=== PATIENT | female | born 1970 | race Asian ===

== ENCOUNTER 2017-02-10 10:53 | Emergency (ER) | payer BC ==
[~2017-02-10] VITALS: Ht 157.5 cm; Wt 60.0 kg
[2017-02-10 10:54] VITALS: BP 108/63; PULSE 86; RESP 16; TEMP 98.7; O2SAT 100
[2017-02-10] MEDS ORDERED: SODIUM CHLOR 0.9% 1000 ML INJ 1,000 ML IV SCH (11:49)
--- NOTE | 2017-02-10 11:53 | PD ---
HPI Chief Complaint: Related Problem Time Seen by Provider: 11:52 Travel History International Travel<30 days: No Contact w/Intl Traveler<30days: No Traveled to known affect area: No History of Present Illness HPI 46-year-old female 13 weeks presents to the emergency department for evaluation of epigastric bloating, nausea, gastric reflux and vomiting for one month. The patient speaks only Mandarin and cashier host/hostess is used for the duration of the visit. The patient states that she is . States her last menstrual period is 11/09/16. She has had confirmation of by an OB/ DIRECTOR OF PHYSICIAN PRACTICES with ultrasound, she has twin gestation secondary to in vitro fertilization. She is here complaining of reflux, nausea and vomiting for the past month. States that she does not have anything for nausea at home and is unable to get an appointment with her HORTICULTURAL AGENT for another several weeks. She denies any abdominal pain, fever, chills, chest pain, shortness of breath, vaginal bleeding, vaginal discharge, dysuria. Denies taking any medications. Symptoms aggravated with eating. Denies any alleviating factors. No other complaints. PFSH Past Medical History Medical History: Denies Significant Hx ?: LMP: 10/30/16 : 1 Para: 2 Past Surgical History Surgical History: No Previous Surgery Social History Alcohol Use: No Tobacco Use: No Substance Use: No Allergies-Medications (Allergen,Severity, Reaction): Coded Allergies: No Known Allergies (Unverified , 02/10/17) Review of Systems Except as stated in HPI: all other systems reviewed are Neg Physical Exam Narrative GENERAL: Well-nourished and well-developed pleasant female patient in no acute distress who is nontoxic appearing. SKIN: Warm and dry. HEAD: Normocephalic and atraumatic. EYES: No injection, drainage, or hyphema noted. PERRLA. EOMI. ENT: No nasal drainage noted. Oropharynx is clear. NECK: Supple and the trachea is midline. CARDIOVASCULAR: Regular rate and rhythm. RESPIRATORY: Breath sounds are equal bilaterally with no accessory muscle use, wheezing, rhonchi, or crackles. GASTROINTESTINAL: Abdomen is soft, non-tender, and nondistended. No rebound tenderness or guarding. MUSCULOSKELETAL: No obvious deformities, swelling, cyanosis, or ecchymosis is present throughout the upper and lower extremities. Patient has full range of motion without any signs of neurovascular compromise. NEUROLOGICAL: Awake, alert, and oriented. Normal speech and gait. Cranial nerves are grossly intact. Data Data Last Documented VS Vital Signs Date Time Temp Pulse Resp B/P Pulse Ox O2 Delivery O2 Flow Rate FiO2 02/10/17 13:44 79 16 100/52 99 02/10/17 10:54 98.7 Room Air Orders Beta Hcg (Quant/Titer) (02/10/17 11:49) Complete Blood Count With Diff (02/10/17 11:49) Comprehensive Metabolic Panel (02/10/17 11:49) Urinalysis - C+S If Indicated (02/10/17 11:49) Iv Access Insert/Monitor (02/10/17 11:49) Ecg Monitoring (02/10/17 11:49) Ondansetron Inj (Zofran Inj) (02/10/17 12:00) Ed Urine Pregnancytest Poc (02/10/17 11:49) Sodium Chlor 0.9% 1000 Ml Inj (Ns 1000 M (02/10/17 11:49) Famotidine Inj (Pepcid Inj) (02/10/17 12:00) Lipase (02/10/17 12:05) Labs Laboratory Tests Test 02/10/17 12:05 White Blood Count 8.5 TH/MM3 Red Blood Count 3.92 MIL/MM3 Hemoglobin 12.5 GM/DL Hematocrit 35.7 % Mean Corpuscular Volume 91.2 FL Mean Corpuscular Hemoglobin 31.8 PG Mean Corpuscular Hemoglobin 34.9 % Concent Red Cell Distribution Width 13.4 % Platelet Count 203 TH/MM3 Mean Platelet Volume 9.3 FL Neutrophils (%) (Auto) 65.1 % Lymphocytes (%) (Auto) 22.8 % Monocytes (%) (Auto) 9.3 % Eosinophils (%) (Auto) 2.5 % Basophils (%) (Auto) 0.3 % Neutrophils # (Auto) 5.5 TH/MM3 Lymphocytes # (Auto) 1.9 TH/MM3 Monocytes # (Auto) 0.8 TH/MM3 Eosinophils # (Auto) 0.2 TH/MM3 Basophils # (Auto) 0.0 TH/MM3 CBC Comment DIFF FINAL Differential Comment Urine Color YELLOW Urine Turbidity CLOUDY Urine pH 8.5 Urine Specific [place] 1.022 Urine Protein TRACE mg/dL Urine Glucose (UA) NEG mg/dL Urine Ketones 10 mg/dL Urine Occult Blood NEG Urine Nitrite NEG Urine Bilirubin NEG Urine Urobilinogen LESS THAN 2.0 MG/DL Urine Leukocyte Esterase NEG Urine RBC 3 /hpf Urine Squamous Epithelial 3 /hpf Cells Urine Amorphous Sediment OCC Urine Bacteria RARE /hpf Urine Mucus FEW /lpf Microscopic Urinalysis Comment CULT NOT INDICATED Sodium Level 138 MEQ/L Potassium Level 3.8 MEQ/L Chloride Level 107 MEQ/L Carbon Dioxide Level 20.4 MEQ/L Anion Gap 11 MEQ/L Blood Urea Nitrogen 7 MG/DL Creatinine 0.41 MG/DL Estimat Glomerular Filtration 169 ML/MIN Rate Random Glucose 69 MG/DL Calcium Level 9.2 MG/DL Total Bilirubin 0.5 MG/DL Aspartate Amino Transf 20 U/L (AST/SGOT) Alanine Aminotransferase 20 U/L (ALT/SGPT) Alkaline Phosphatase 59 U/L Total Protein 7.6 GM/DL Albumin 3.5 GM/DL Lipase 159 U/L Human Chorionic Gonadotropin, GREATER THAN Quant [id number] MIU/ML MDM Medical Decision Making Medical Screen Exam Complete: Yes Emergency Medical Condition: Yes Differential Diagnosis Reflux versus versus UTI versus dehydration versus electrolyte abnormality Narrative Course 46-year-old female presents to the emergency department for evaluation of reflux , nausea and vomiting in the setting of first trimester . Patient is afebrile, vital signs are stable. Abdominal examination is benign. IV access is obtained, labs 7 drawn and sent. Patient is administered IV fluids, Zofran and Pepcid. CBC is unremarkable. CMP is unremarkable. Beta hCG greater than 200,000. Urinalysis shows 10 ketones, rare bacteria and few mucus. Patient reports improvement of symptoms after antiemetics and fluids. Patient will be discharged with Zofran and Zantac. Instructed to follow up as an outpatient with her finance specialist. Patient verbalizes understanding and agreement with treatment plan. I discussed the case with my attending physician Dr. Trevino who is aware of the patients history, physical examination findings, and treatment plan. Diagnosis Primary Impression: Vomiting during Additional Impression: Gastric reflux Referrals: Primary Care Physician Patient Instructions: Acute Nausea and Vomiting (ED), Gastroesophageal Reflux Disease (ED), General Instructions, (DC) Additional Instructions: Take medications as prescribed. Follow-up with your OBGYN Return to the ED for any acute worsening of symptoms. Med/Other Pt SpecificInfo: Prescription(s) given Scripts Ondansetron (Zofran)4 Mg Tab4 Mg PO Q6HR PRN (NAUSEA OR VOMITING) #20 TAB Ref 0 Prov:Raghu Trevino MD 02/10/17 Ranitidine (Zantac)150 Mg [id number] Mg PO BID #60 TAB Ref 0 Prov:Raghu Trevino MD 02/10/17 Disposition: 01 DISCHARGE HOME Condition: Stable Nenita Brumfield Feb 10, 2017 11:52
[2017-02-10] MEDS ORDERED: ONDANSETRON HCL 4 MG/2 ML VIAL IVP ONE (12:00)
[2017-02-10] MEDS ORDERED: FAMOTIDINE 20 MG/2 ML VIAL IV PUSH ONE (12:00)
[2017-02-10 12:42] LABS: AUTOMATED NEUTROPHIL # 5.5 TH/MM3 (1.8-7.7); BASOPHIL % 0.3 % (0.0-2.0); EOSINOPHIL # 0.2 TH/MM3 (0-0.4); EOSINOPHIL % 2.5 % (0.0-4.0); HEMATOCRIT 35.7 % (35.0-46.0); HEMO FLAGS DIFF FINAL; LYMPH % 22.8 % (9.0-44.0); LYMPHOCYTE # 1.9 TH/MM3 (1.0-4.8); MEAN CELL VOLUME 91.2 FL (80.0-100.0); MEAN CORPUSCULAR HEMOGLOBIN 31.8 PG (27.0-34.0); MEAN CORPUSCULAR HGB CONC 34.9 % (32.0-36.0); MONO % 9.3 % (0.0-8.0); NEUT % 65.1 % (16.0-70.0); PLATELET COUNT 203 TH/MM3 (150-450); RED BLOOD COUNT 3.92 MIL/MM3 (4.00-5.30); RED CELL DISTRIBUTION WIDTH 13.4 % (11.6-17.2); WHITE BLOOD COUNT 8.5 TH/MM3 (4.0-11.0)
[2017-02-10 12:52] LABS: BACTERIA, URINE RARE /hpf; BLOOD, URINE NEG (NEG); COMMENT (UR) CULT NOT INDICATED; CULTURE IF INDICATED CULT NOT INDICATED; GLUCOSE,URINE NEG (NEG); KETONE, URINE 10 mg/dL (NEG); MUCUS URINE FEW /lpf (OCC); NITRITE,URINE NEG (NEG); PH, URINE 8.5 (5.0-8.5); SQUAMOUS EPITHELIAL CELL URINE 3 /hpf (0-5); URINE COLOR YELLOW (YELLW/STRAW)
[2017-02-10 13:10] LABS: ALT (GPT) 20 U/L (10-53); ANION GAP 11 MEQ/L (5-15); AST (GOT) 20 U/L (15-37); BICARBONATE 20.4 MEQ/L (21.0-32.0); BLOOD UREA NITROGEN 7 MG/DL (7-18); CHLORIDE 107 MEQ/L (98-107); GLOMERULAR FILTRATION RATE 169 ML/MIN (>89); POTASSIUM 3.8 MEQ/L (3.5-5.1); SODIUM (NA) 138 MEQ/L (136-145)
[2017-02-10 13:26] LABS: ALKALINE PHOSPHATASE 59 U/L (45-117); TOTAL BILIRUBIN ADULT 0.5 MG/DL (0.2-1.0)
[2017-02-10 13:44] VITALS: BP 100/52; PULSE 79; RESP 16; O2SAT 99
[2017-02-10 14:02] LABS: BETA HCG QUANT GREATER THAN 200000 MIU/ML (0-5)
[2017-02-10] MEDS ORDERED: ZANT150T2 PO (14:18)
[2017-02-10] MEDS ORDERED: ZOFR4TAB PO (14:18)
== END 2017-02-10 14:50 | disposition home or self-care (01) ==
LOC: NEPD 10:53
DX: O21.9 Vomiting of pregnancy, unspecified (principal); K21.9 Gastro-esophageal reflux disease without esophagitis; O09.511 Supervision of elderly primigravida, first trimester; O30.001 Twin pregnancy, unspecified number of placenta and unspecified number of amniotic sacs, first trimester; Z3A.13 13 weeks gestation of pregnancy
CPT/HCPCS: 80053; 81001; 83690; 84702; 84703; 85025; 96361; 96374; 96375; 99284; J2405; J7030

== ENCOUNTER 2017-02-20 15:23 | Emergency (ER) | payer BC ==
[~2017-02-20] VITALS: Ht 160 cm; Wt 50.0 kg
[~2017-02-20 15:23] MED LIST: ZANT150T2 PO; ZOFR4TAB PO
[2017-02-20 15:25] VITALS: BP 105/54; PULSE 91; RESP 15; TEMP 98.2; O2SAT 99
--- NOTE | 2017-02-20 15:44 | PD ---
HPI Chief Complaint: GI Complaint Time Seen by Provider: 15:44 Travel History International Travel<30 days: No Contact w/Intl Traveler<30days: No Traveled to known affect area: No History of Present Illness HPI 46-year-old female who is 13 weeks with twins came to the emergency room with history of constipation. Patient was seen in the emergency room 10 days ago for hyperemesis gravidarum. This is a from IVF which was done in [facility]. Patient has not seen an OB here in return of each. Her appointment with the OB is on March 07. Patient does not speak Turkmen. History was obtained through interpretation by another person. [facility] Past Medical History Narrative Medical List of her past medical, surgical, social and family history was reviewed from the nursing note. ?: Not : 1 Para: 2 Social History Alcohol Use: No Tobacco Use: No Substance Use: No Allergies-Medications (Allergen,Severity, Reaction): Coded Allergies: No Known Allergies (Unverified , 02/20/17) Comments No known drug allergies. Reported Meds & Prescriptions Reported Meds & Active Scripts Active Miralax Powder (Polyethylene Glycol 3350 Powder) 17 Gm Powd 17 Gm PO DAILY Mix and dissolve one measuring cap-ful (17 grams) in water or juice. Zofran (Ondansetron HCl) 4 Mg Tab 4 Mg PO Q6HR PRN Zantac (Ranitidine HCl) 150 Mg Tab 150 Mg PO BID Narrative Medication List of her home medications reviewed from the nursing note. Review of Systems Except as stated in HPI: all other systems reviewed are Neg Physical Exam Narrative GENERAL: Awake, alert, anxious, mild distress SKIN: Focused skin assessment warm/dry. HEAD: Atraumatic. Normocephalic. EYES: Pupils equal and round. No scleral icterus. No injection or drainage. ENT: No nasal bleeding or discharge. Mucous membranes pink and moist. NECK: Trachea midline. No JVD. CARDIOVASCULAR: Regular rate and rhythm. No murmur appreciated. RESPIRATORY: No accessory muscle use. Clear to auscultation. Breath sounds equal bilaterally. GASTROINTESTINAL: Abdomen soft, non-tender, nondistended. Hepatic and splenic margins not palpable. Rectal exam was done which has couple of stool tina in the rectal vault. MUSCULOSKELETAL: No obvious deformities. No clubbing. No cyanosis. No edema. NEUROLOGICAL: Awake and alert. No obvious cranial nerve deficits. Motor grossly within normal limits. Normal speech. PSYCHIATRIC: Appropriate mood and affect; insight and judgment normal. Data Data Last Documented VS Vital Signs Date Time Temp Pulse Resp B/P Pulse Ox O2 Delivery O2 Flow Rate FiO2 02/20/17 15:55 16 02/20/17 15:25 98.2 91 105/54 99 Orders Glycerin Adult Supp (Glycerin Adult Supp (02/20/17 16:15) MDM Medical Decision Making Medical Screen Exam Complete: Yes Emergency Medical Condition: Yes Medical Record Reviewed: Yes Differential Diagnosis Constipation, vomiting in Narrative Course 4:50 PM I discussed the case with the OB hospitalist Dr. Germain and as per him a glycerin suppository along with MiraLAX should be safe during this time of the . High fiber diet and follow up with her OB. Glycerin suppository has been ordered. Patient will be discharged home. Procedures EKG Prior to Arrival: No Diagnosis Primary Impression: Constipation Qualified Code: K59.00 - Constipation, unspecified constipation type Additional Impression: Second trimester Referrals: Primary Care Physician 2 days Additional Instructions: Please return to the ER if the condition worsens or any other new concerns. High fiber diet along with lots of fluid. Continue taking and nausea medication. The other medication as per the prescription direction. Follow-up with your OB. Med/Other Pt SpecificInfo: Prescription(s) given Scripts Polyethylene Glycol 3350 Powder (Miralax Powder)17 Gm Powd17 Gm PO DAILY #1 BOTTLE Ref 0 Mix and dissolve one measuring cap-ful (17 grams) in water or juice. Prov:Adia Nichole MD 02/20/17 Disposition: 01 DISCHARGE HOME Condition: Stable Adia Nichole MD February 20, 2017 15:44
[2017-02-20] MEDS ORDERED: GLYCERIN ADULT 2 GM SUPP RECTAL ONE (16:15)
[2017-02-20] MEDS ORDERED: MIRA33504 PO (16:52)
== END 2017-02-20 17:51 | disposition home or self-care (01) ==
LOC: NEPD 15:23
DX: O99.611 Diseases of the digestive system complicating pregnancy, first trimester (principal); K59.00 Constipation, unspecified; O09.511 Supervision of elderly primigravida, first trimester; O30.001 Twin pregnancy, unspecified number of placenta and unspecified number of amniotic sacs, first trimester; Z3A.13 13 weeks gestation of pregnancy
CPT/HCPCS: 99283

== ENCOUNTER → 2017-03-29 | Outpatient (CLI) | payer BC ==
[~2017-03-29] MED LIST changes: +MIRA33504 PO
== END ==
LOC: HPND 12:20
PROVIDERS: ATTEND Obstetrics & Gynecology
DX: O09.812 Supervision of pregnancy resulting from assisted reproductive technology, second trimester (principal); O30.032 Twin pregnancy, monochorionic/diamniotic, second trimester; O09.522 Supervision of elderly multigravida, second trimester
CPT/HCPCS: 76811; 76817

== ENCOUNTER 2017-06-20 19:58 | Inpatient (IN) | payer BC ==
[2017-06-20] VITALS (8 sets, daily range): BP systolic 111–126; BP diastolic 53–72; PULSE 75–86; RESP 18–20
[2017-06-20] MEDS ORDERED: LACTATED RINGER'S 1000 ML INJ 500 ML IV ONE (20:48)
--- NOTE | 2017-06-20 20:48 | PD ---
HPI Chief Complaint Contractions Date Seen: Jun 20, 2017 Time Seen: 20:39 Travel History International Travel<30 Days: No Contact w/Intl Traveler<30Days: No Known Affected Area: No History of Present Illness HPI 47-year-old at 31 weeks gestation based on an CLEMENTE of August 24, 2017. Patient has mono/di twin with a history of in vitro fertilization. Patient speaks only Mandarin and a shore worker was used to get her history and for communication. Patient has had a history of the delivery many years ago and denies any ongoing issues with this other than the twin gestation. Her last ultrasound occurred June 14, 2017, twin A was in the cephalic presentation with a weight of 3 lbs. 1 oz., twin B was in the transverse presentation with a weight of 2 lbs. 15 oz. patient has had normal growth of the twins throughout this . Weeks Gestation: 31 Para: 1 : 2 Last Menstrual Period: Jun 20, 2017 History Past Medical History Narrative Medical History of a positive hepatitis B with normal liver function test Obstetric History Obstetric History delivery Twin gestation Past Surgical History Narrative Surgical delivery Family History Family History: Negative Social History Alcohol Use: No Tobacco Use: No Substance Abuse: No Allergies-Medications (Allergen,Severity, Reaction): Coded Allergies: No Known Allergies (Unverified , 02/20/17) Home Meds Active Scripts Polyethylene Glycol 3350 Powder (Miralax Powder) 17 Gm Powd, 17 GM PO DAILY for Constipation, #1 BOTTLE 0 Refills Mix and dissolve one measuring cap-ful (17 grams) in water or juice. Prov:Adia Nichole MD 02/20/17 Ondansetron (Zofran) 4 Mg Tab, 4 MG PO Q6HR Y for NAUSEA OR VOMITING, #20 TAB 0 Refills Prov:Raghu Trevino MD 02/10/17 Ranitidine (Zantac) 150 Mg Tab, 150 MG PO BID for Reflux, #60 TAB 0 Refills Prov:Raghu Trevino MD 02/10/17 Review of Systems Except as stated in HPI: all other systems reviewed are Neg Physical Exam Narrative GENERAL: Well-nourished, well-developed patient. SKIN: Warm and dry. HEAD: Normocephalic and atraumatic. EYES: No scleral icterus. No injection or drainage. ENT: No nasal drainage noted. Mucous membranes pink. Airway patent. NECK: Supple, trachea midline. No JVD. CARDIOVASCULAR: Regular rate and rhythm without murmurs, gallops, or rubs. RESPIRATORY: Breath sounds equal bilaterally. No accessory muscle use. BREASTS: Bilateral exam showed no masses , no retractions, no nipple discharge. ABDOMEN/GI: Abdomen soft, non-tender, bowel sounds present, no rebound, no guarding Gravid to [-37] weeks size Fundal Height: [-] GENITOURINARY: External Genitalia: intact and normal in appearance BUS glands: [-Normal] Cervix: [-Mid position] Dilatation: [-1-2] Effacement: [80-] Station: [--2] Presentation: [-Twin a cephalic] Membranes: [intact ] Uterine Contractions: [-Every 2 minutes] FHT's: Category: [1-] Baseline: [-] 140s 2 Reactive: [-] Moderate for both babies Variability: [-] Moderate for both babies Decels: [-] Absent EXTREMITIES: No cyanosis or edema. BACK: Nontender without obvious deformity. No CVA tenderness. NEUROLOGICAL: Awake and alert. Motor and sensory grossly within normal limits. Five out of 5 muscle strength in all muscle groups. Normal speech. Data Data Vital Signs Reviewed: Yes [facility] Medical Record Reviewed: Yes Plan 47-year-old with mono/di twin gestation at 31 weeks with threatened labor zahira every 2 minutes 1. Threatened labor - start antibiotics, magnesium sulfate, and steroids 2. Advanced maternal age 3. Previous - patient has discussed repeat for labor 4. History of a positive hepatitis B surface antigen will order repeat liver functions Diagnosis Diagnosis: Primary Impression: 31 weeks gestation of Additional Impressions: labor in third trimester without delivery Twin gestation, monochorionic/diamniotic (one placenta, two amniotic sacs) Advanced maternal age in multigravida Previous delivery affecting , antepartum Carly Spain MD Jun 20, 2017 20:48
[2017-06-20] MEDS ORDERED: DOCUSATE SODIUM 100 MG CAP PO PRN (21:00)
[2017-06-20] MEDS ORDERED: MAGNESIUM SULFATE 4 GM PREMIX 100 ML IV ONE (21:00)
[2017-06-20] MEDS ORDERED: ONDANSETRON HCL 4 MG/2 ML VIAL IV PRN (21:00)
[2017-06-20] MEDS ORDERED: SODIUM CHLORIDE 0.9% FLUSH 10 ML FLUSH IV FLUSH PRN (21:00)
[2017-06-20] MEDS ORDERED: ACETAMINOPHEN 325 MG TAB PO PRN (21:00)
[2017-06-20] MEDS ORDERED: CALCIUM GLUCONATE 10% 1 GM/10 ML VIAL IV PRN (21:00)
[2017-06-20] MEDS: SODIUM CHLORIDE 0.9% FLUSH 10 ML FLUSH IV FLUSH SCH (21:00)
[2017-06-20] MEDS ORDERED: PENICILLIN G POTASSIUM INJ 5,000,000 UNITS in SODIUM CHLORIDE 0.9% INJ 100 ML IV SCH (21:00)
[2017-06-20 22:00] LABS: ANION GAP 8 MEQ/L (5-15); AST (GOT) 21 U/L (15-37); BICARBONATE 21.9 MEQ/L (21.0-32.0); BLOOD UREA NITROGEN 11 MG/DL (7-18); CHLORIDE 109 MEQ/L (98-107); GLOMERULAR FILTRATION RATE 117 ML/MIN (>89); POTASSIUM 3.8 MEQ/L (3.5-5.1); SODIUM (NA) 139 MEQ/L (136-145)
[2017-06-20 22:01] LABS: ALT (GPT) 15 U/L (10-53)
[2017-06-20 22:04] LABS: ALKALINE PHOSPHATASE 200 U/L (45-117); TOTAL BILIRUBIN ADULT 0.5 MG/DL (0.2-1.0)
[2017-06-20] MEDS: LACTATED RINGER'S 1000 ML INJ 1,000 ML IV SCH (22:06)
[2017-06-20] MEDS: MAGNESIUM SULFATE 40 GM PREMIX 1,000 ML IV SCH (22:08)
[2017-06-20 22:11] LABS: BLOOD, URINE NEG (NEG); COMMENT (UR) CULT NOT INDICATED; CULTURE IF INDICATED CULT NOT INDICATED; GLUCOSE,URINE NEG (NEG); KETONE, URINE NEG (NEG); MUCUS URINE FEW /lpf (OCC); NITRITE,URINE NEG (NEG); SQUAMOUS EPITHELIAL CELL URINE 3 /hpf (0-5); URINE COLOR LIGHT-YELLOW (YELLW/STRAW)
[2017-06-20] MEDS: BETAMETHASONE SOD PHOS/ACETATE SUSP 30 MG/5 ML VIAL IM SCH (22:21)
--- NOTE | 2017-06-20 23:18 | HHI.PR ---
Addendum to Inpatient Note Addendum Reason: Additional Documentation Additional Information Consult: requested by Dr. Spain Maternal Hx: Ms. Dickinson is a 47 y/o female who presented to the OB ED this evening with labor. She is , currently via IVF with [place]/Di twins. Most recent ultrasound on 06/14/17 showed twin A as cephalic with an estimated weight of 3 lb 1 oz and twin B in transverse position at 2 lb 15oz. Maternal Labs: Documentation is not available but mom was noted to be Hepatitis B positive and HIV negative in her OB ED H&P. Maternal Medications: Vitamins Zofran Zantac Miralax BMS #1 given 06/20/17 at 2221 PCN - first dose given 06/20/17 at 2211 Magnesium Social: Mom is single but FOB was present for consult. Mom speaks only Mandarin so [employer] was used for translation services. Substance Abuse: 06/20/17 UDS was negative. Discussion: SURGICAL SERVICES ASST met with MOB and FOB to discuss potential premature delivery. This conversation included generalized care of the babies in the NICU, common problems at this gestational age, potential complications, and survival statistics. Parents were told that survival rates at this gestational age are very high and fdc neurodevelopmental complications are rare. Parents were given information about what to expect at delivery and that infant would need to be transferred to the NICU soon after delivery. Parents were told that there are open visitation policies in the NICU (only closed during nursing change of shift) and that their presence and participation in care is strongly encouraged. The NICU admission process was discussed and that the babies will need IV placement and potentially respiratory support. Disease processes of HMD/ potential need for surfactant, feeding intolerance/benefits of and need to start pumping soon after delivery, risk for infection, jaundice, ROP , and IVH were all discussed. Various forms of respiratory support were described and the need for feeding tubes and IVF were also discussed. Potential need for treatment of jaundice with phototherapy was discussed. Parents were notified of additional support services such as consultants and case management. Parents were offered the opportunity to ask questions but stated they had none at that time. Parents were encouraged to write down any questions that may arise through this process and to request that nursing notify the COLOR PRINTER OPERATOR to return as needed. Parents expressed appreciation for the information. The total length of [id number] or floor/unit time for this encounter was 60 minutes and greater than 50% of that time was spent counseling the parents. Alley Contreras Jun 20, 2017 23:18
[2017-06-21] VITALS (39 sets, daily range): BP systolic 100–118; BP diastolic 51–67; PULSE 69–82; RESP 16–20; TEMP 97.8–98.7
[2017-06-21] MEDS: PENICILLIN G POTASSIUM INJ 2,500,000 UNITS in SODIUM CHLORIDE 0.9% INJ 100 ML IV SCH ×7 (03:09→23:27)
[2017-06-21] MEDS: LACTATED RINGER'S 1000 ML INJ 1,000 ML IV SCH ×2 (04:48→12:02)
[2017-06-21 05:48] LABS: AUTOMATED NEUTROPHIL # 5.2 TH/MM3 (1.8-7.7); BASOPHIL % 0.2 % (0.0-2.0); HEMO FLAGS DIFF FINAL; LYMPH % 14.9 % (9.0-44.0); LYMPHOCYTE # 0.9 TH/MM3 (1.0-4.8); MEAN CELL VOLUME 81.3 FL (80.0-100.0); MEAN CORPUSCULAR HEMOGLOBIN 25.3 PG (27.0-34.0); MEAN CORPUSCULAR HGB CONC 31.1 % (32.0-36.0); MONO % 1.5 % (0.0-8.0); NEUT % 83.4 % (16.0-70.0); PLATELET COUNT 152 TH/MM3 (150-450); RED BLOOD COUNT 2.95 MIL/MM3 (4.00-5.30); RED CELL DISTRIBUTION WIDTH 16.6 % (11.6-17.2); WHITE BLOOD COUNT 6.2 TH/MM3 (4.0-11.0)
--- NOTE | 2017-06-21 08:39 | PD.OB.ANTE ---
Subjective Diagnosis: (1) labor in third trimester without delivery Diagnosis: Principal (2) 31 weeks gestation of Diagnosis: Principal (3) Twin gestation, monochorionic/diamniotic (one placenta, two amniotic sacs) Diagnosis: Principal (4) Previous delivery affecting , antepartum Diagnosis: Secondary Interval History Hospital Day #2, admitted overnight 06/20/17 Pt c/o continued pelvic pressure but less tightening/contractions then on admission; stated initial contraction pain started at home on Monday, came in yesterday (Monday) evening no LOF, no VB, good FM x 2 hungry, requests diet order Antepartum ROS: Reports: movement normal, Denies: New complaints, Loss of fluid, Vaginal bleeding, Contractions, Other Objective Vital Signs Vital Signs Date Time Temp Pulse Resp B/P (MAP) Pulse Ox O2 Delivery O2 Flow Rate FiO2 06/21/17 08:00 81 115/51 (72) 06/21/17 07:57 97.8 16 06/21/17 06:13 16 06/21/17 06:00 78 16 110/57 (74) 06/21/17 05:00 74 110/55 (73) 06/21/17 04:11 16 06/21/17 04:00 70 113/59 (77) 06/21/17 04:00 98.4 06/21/17 03:09 18 06/21/17 03:07 18 06/21/17 03:06 69 115/67 (83) 06/21/17 03:00 18 06/21/17 02:00 73 113/65 (81) 06/21/17 01:01 18 06/21/17 01:00 74 118/56 (76) 06/21/17 00:59 18 06/21/17 00:00 18 06/21/17 00:00 118/67 (84) 06/21/17 00:00 118/67 (84) 06/21/17 00:00 98.7 06/21/17 00:00 79 06/20/17 23:00 111/72 (85) 06/20/17 23:00 75 06/20/17 23:00 111/72 (85) 06/20/17 22:45 18 06/20/17 22:30 86 120/67 (84) 06/20/17 22:23 18 06/20/17 22:15 126/58 (80) 06/20/17 22:15 79 06/20/17 22:04 18 06/20/17 22:03 117/53 (74) 06/20/17 22:03 78 06/20/17 21:45 20 Lab & Micro Results Test 06/20/17 20:40 06/21/17 04:51 Urine Color LIGHT-YELLOW Urine Turbidity CLEAR Urine pH 7.0 Urine Specific [place] 1.014 Urine Protein NEG mg/dL Urine Glucose (UA) NEG mg/dL Urine Ketones NEG mg/dL Urine Occult Blood NEG Urine Nitrite NEG Urine Bilirubin NEG Urine Urobilinogen LESS THAN 2.0 MG/DL Urine Leukocyte Esterase NEG Urine RBC LESS THAN 1 /hpf Urine WBC 1 /hpf Urine Squamous Epithelial Cells 3 /hpf Urine Mucus FEW /lpf Microscopic Urinalysis Comment CULT NOT INDICATED Blood Urea Nitrogen 11 MG/DL Creatinine 0.56 MG/DL Random Glucose 81 MG/DL Total Protein 6.3 GM/DL Albumin 2.4 GM/DL Calcium Level 8.3 MG/DL Alkaline Phosphatase 200 U/L Aspartate Amino Transf (AST/SGOT) 21 U/L Alanine Aminotransferase (ALT/SGPT) 15 U/L Total Bilirubin 0.5 MG/DL Sodium Level 139 MEQ/L Potassium Level 3.8 MEQ/L Chloride Level 109 MEQ/L Carbon Dioxide Level 21.9 MEQ/L Anion Gap 8 MEQ/L Estimat Glomerular Filtration Rate 117 ML/MIN Urine Opiates Screen NEG Urine Barbiturates Screen NEG Urine Amphetamines Screen NEG Urine Benzodiazepines Screen NEG Urine Cocaine Screen NEG Urine Cannabinoids Screen NEG White Blood Count 6.2 TH/MM3 Red Blood Count 2.95 MIL/MM3 Hemoglobin 7.5 GM/DL Hematocrit 24.0 % Mean Corpuscular Volume 81.3 FL Mean Corpuscular Hemoglobin 25.3 PG Mean Corpuscular Hemoglobin Concent 31.1 % Red Cell Distribution Width 16.6 % Platelet Count 152 TH/MM3 Mean Platelet Volume 10.0 FL Neutrophils (%) (Auto) 83.4 % Lymphocytes (%) (Auto) 14.9 % Monocytes (%) (Auto) 1.5 % Eosinophils (%) (Auto) 0.0 % Basophils (%) (Auto) 0.2 % Neutrophils # (Auto) 5.2 TH/MM3 Lymphocytes # (Auto) 0.9 TH/MM3 Monocytes # (Auto) 0.1 TH/MM3 Eosinophils # (Auto) 0.0 TH/MM3 Basophils # (Auto) 0.0 TH/MM3 CBC Comment DIFF FINAL Differential Comment Physical Exam GENERAL: Well-nourished, well-developed patient. Laying in bed. CARDIOVASCULAR: Regular rate and rhythm without murmurs, gallops, or rubs. RESPIRATORY: Breath sounds equal bilaterally. No accessory muscle use. ABDOMEN/GI: Abdomen soft, non-tender. Fundus: [twins, fundal height greater than dates] GENITOURINARY: External Genitalia: intact and normal in appearance Cervix: [posterior] Dilatation: [1] Effacement: [50] Station: [-3] Presentation: [vtx but hand palpated thru posterior cervix; compound presentation; active baby; last scan showed Twin B transverse] Membranes: [intact] Uterine Contractions: [improved from q2 min on admission to q5-8 min currently , irregular] FHT's: Category: [I x 2] Baseline: [120s, 130s] Reactive: [y x 2] Variability: [y x 2] Decels: [n x 2] EXTREMITIES: No cyanosis or edema, non-tender, without signs of DVT. Assessment and Plan Problem List: (1) labor in third trimester without delivery ICD Codes: O60.03 - labor without delivery, third trimester Status: Acute (2) 31 weeks gestation of ICD Codes: Z3A.31 - 31 weeks gestation of Status: Acute (3) Twin gestation, monochorionic/diamniotic (one placenta, two amniotic sacs) ICD Codes: O30.039 - Twin , monochorionic/diamniotic, unspecified trimester Status: Acute (4) Previous delivery affecting , antepartum ICD Codes: O34.219 - Maternal care for unspecified type scar from previous delivery Status: Chronic Assessment and Plan 47 yo with mono-di twin IUP at 30w6d, admit 06/20/17 for labor/ contractions 1) PTL: pt on IVF, magnesium sulfate for neuroprotection, antibiotic ppx, s/p 1/ 2 doses of BMZ, 2nd dose due around 2230P tonight; cervical exam improved for me this AM compared to admit exam; for me 1/50/-3, Twin A vtx but compound presentation hand palpated thru posterior cervix; ballotable, not well applied; continue bedrest, calderon in place, ok to advance diet; if any changes/ progression will make NPO as pt will be for repeat and BTL (consents signed w me in office last week) 2) h/o CD: desires repeat with BTL 3) AMA: anatomy sono wnl, has been seeing MFM, declined amnio 4) status: female x 2, currently Twin A vtx cmpd presentation w hand; Twin B transverse on last sono 4) dispo: not meeting d/c criteria, pt continues to have PTL contractions & pain ; monitoring closely for any change in status Lillie Valladares MD Jun 21, 2017 08:39
[2017-06-21] MEDS: SODIUM CHLORIDE 0.9% FLUSH 10 ML FLUSH IV FLUSH SCH ×2 (09:00→21:58)
[2017-06-21] MEDS: MULTIVIT/MIN/PREN/FOL AC/IRON PRENATAL TAB PO SCH (09:14)
[2017-06-21] MEDS: IRON SUCROSE INJ 100 MG in SODIUM CHLORIDE 0.9% INJ 100 ML IV SCH (12:01)
[2017-06-21] MEDS: MAGNESIUM SULFATE 40 GM PREMIX 1,000 ML IV SCH (18:12)
[2017-06-21] MEDS: BETAMETHASONE SOD PHOS/ACETATE SUSP 30 MG/5 ML VIAL IM SCH (21:58)
[2017-06-22] MEDS: PENICILLIN G POTASSIUM INJ 2,500,000 UNITS in SODIUM CHLORIDE 0.9% INJ 100 ML IV SCH ×2 (03:36→07:00)
[2017-06-22] MEDS: LACTATED RINGER'S 1000 ML INJ 1,000 ML IV SCH ×2 (03:36→09:04)
[2017-06-22 05:59] VITALS: BP 99/58; PULSE 85
[2017-06-22 06:00] VITALS: RESP 17
--- NOTE | 2017-06-22 07:42 | PD.OB.ANTE ---
Subjective Diagnosis: (1) labor in third trimester without delivery (2) 31 weeks gestation of (3) Twin gestation, monochorionic/diamniotic (one placenta, two amniotic sacs) (4) Previous delivery affecting , antepartum Interval History 47 yo mf with 31` week di di twins and episode of PTL and cervical change. Given steroids, 2 days of magnesium, antibiotics. Has not changed progressed since. Now hospital day 3 comfortable with 3 contractions this am. No leaking, bleeding GFM Objective Vital Signs Vital Signs Date Time Temp Pulse Resp B/P (MAP) Pulse Ox O2 Delivery O2 Flow Rate FiO2 06/22/17 05:59 85 99/58 (72) 06/21/17 22:00 78 112/52 (72) 06/21/17 21:00 77 112/56 (74) 06/21/17 20:00 81 112/60 (77) 06/21/17 19:30 18 06/21/17 19:27 98.2 06/21/17 19:00 79 107/56 (73) 06/21/17 18:06 18 06/21/17 18:00 82 112/57 (75) 06/21/17 17:19 18 06/21/17 17:00 79 106/57 (73) 06/21/17 16:11 18 06/21/17 16:00 78 108/51 (70) 06/21/17 15:15 16 06/21/17 15:00 78 106/57 (73) 06/21/17 14:07 18 06/21/17 14:00 79 100/56 (71) 06/21/17 13:00 18 06/21/17 13:00 78 100/54 (69) 06/21/17 12:00 80 107/55 (72) 06/21/17 11:57 97.8 16 06/21/17 11:00 78 109/59 (76) 06/21/17 10:59 20 06/21/17 10:00 74 109/54 (72) 06/21/17 09:22 16 06/21/17 09:01 79 110/62 (78) 06/21/17 08:00 81 115/51 (72) 06/21/17 07:57 97.8 16 Physical Exam GENERAL: Well-nourished, well-developed patient. CARDIOVASCULAR: Regular rate and rhythm without murmurs, gallops, or rubs. RESPIRATORY: Breath sounds equal bilaterally. No accessory muscle use. ABDOMEN/GI: Abdomen soft, non-tender. 36cm 1-2/80/firm/-2 A is vertex EXTREMITIES: No cyanosis or edema, non-tender, without signs of DVT. Assessment and Plan Problem List: (1) labor in third trimester without delivery ICD Codes: O60.03 - labor without delivery, third trimester Status: Acute (2) 31 weeks gestation of ICD Codes: Z3A.31 - 31 weeks gestation of Status: Acute (3) Twin gestation, monochorionic/diamniotic (one placenta, two amniotic sacs) ICD Codes: O30.039 - Twin , monochorionic/diamniotic, unspecified trimester Status: Acute (4) Previous delivery affecting , antepartum ICD Codes: O34.219 - Maternal care for unspecified type scar from previous delivery Status: Chronic Assessment and Plan 47 yo with mono-di twin IUP at 30w6d, admit 06/20/17 for labor/ contractions and severe anemia Stable at this time with PTL episode resolved watch today and re evaluate off magnesium, steroids and antibiotics now. occasional contraction- will give procardia will redraw labs get BPP x 2 reassess afternoon dispo: not meeting d/c criteria, Lelia Penny MD Jun 22, 2017 07:42
[2017-06-22 08:24] LABS: AUTOMATED NEUTROPHIL # 5.9 TH/MM3 (1.8-7.7); BASOPHIL % 0.1 % (0.0-2.0); LYMPH % 16.9 % (9.0-44.0); LYMPHOCYTE # 1.3 TH/MM3 (1.0-4.8); MEAN CORPUSCULAR HEMOGLOBIN 26.1 PG (27.0-34.0); MEAN CORPUSCULAR HGB CONC 32.3 % (32.0-36.0); MONO % 4.3 % (0.0-8.0); NEUT % 78.7 % (16.0-70.0); PLATELET COUNT 179 TH/MM3 (150-450); RED BLOOD COUNT 2.96 MIL/MM3 (4.00-5.30); RED CELL DISTRIBUTION WIDTH 16.7 % (11.6-17.2); WHITE BLOOD COUNT 7.5 TH/MM3 (4.0-11.0)
[2017-06-22 08:26] LABS: HEMO FLAGS AUTO DIFF
[2017-06-22 08:44] LABS: FERRITIN 34 NG/ML (8-252)
[2017-06-22] MEDS: IRON SUCROSE INJ 100 MG in SODIUM CHLORIDE 0.9% INJ 100 ML IV SCH (09:00)
[2017-06-22] MEDS: MULTIVIT/MIN/PREN/FOL AC/IRON PRENATAL TAB PO SCH (09:00)
[2017-06-22] MEDS: SODIUM CHLORIDE 0.9% FLUSH 10 ML FLUSH IV FLUSH SCH (09:00)
[2017-06-22 10:06] LABS: PLATELET ESTIMATE SMEAR NORMAL (NORMAL); PLATELET MORPHOLOGY ENLARGED (NORMAL); SCAN/DIFF AUTO DIFF CONFIRMED
[2017-06-22 11:00] VITALS: RESP 18
[2017-06-22] MEDS ORDERED: NIFEdipine 10 MG CAP ONE (11:54)
[2017-06-22 11:57] VITALS: BP 109/56; PULSE 78
[2017-06-22] MEDS ORDERED: NIFE10 PO (12:10)
--- NOTE | 2017-06-22 12:11 | HHI.DCPOC ---
Discharge Care Plan Report Symptoms to Your Doctor -Temperature above 100.5 degrees -Redness, of incision or excessive or foul smelling drainage -Unusual pain or calf pain -Increased vaginal bleeding -Painful or difficulty urinating -Feelings of extreme sadness or anxiety after 2 weeks Goals to Promote Your Health * To prevent worsening of your condition and complications * To maintain your health at the optimal level Directions to Meet Your Goals Take your medications as prescribed Follow your dietary instruction Follow activity as directed Ensure plenty of rest for recovery Drink fluids for hydration Keep your appointments as scheduled Take your immunizations and boosters as scheduled If your symptoms worsen call your PCP, if no PCP go to Urgent Care Center or Emergency Room Smoking is Dangerous to Your Health. Avoid second hand smoke Call the 24-hour crisis hotline for domestic abuse at Lelia Penny MD Jun 22, 2017 12:11
--- NOTE | 2017-06-22 12:11 | HHI.DCPOC ---
Discharge Care Plan Report Symptoms to Your Doctor -Temperature above 100.5 degrees -Redness, of incision or excessive or foul smelling drainage -Unusual pain or calf pain -Increased vaginal bleeding -Painful or difficulty urinating -Feelings of extreme sadness or anxiety after 2 weeks Goals to Promote Your Health * To prevent worsening of your condition and complications * To maintain your health at the optimal level Directions to Meet Your Goals Take your medications as prescribed the procardia is for contractionso and take if having them only. Up to three daily Follow your dietary instruction Follow activity as directed Ensure plenty of rest for recovery Drink fluids for hydration Keep your appointments as scheduled Take your immunizations and boosters as scheduled If your symptoms worsen call your PCP, if no PCP go to Urgent Care Center or Emergency Room Smoking is Dangerous to Your Health. Avoid second hand smoke Call the 24-hour crisis hotline for domestic abuse at Lelia Penny MD Jun 22, 2017 12:11
[2017-06-22] MEDS ORDERED: NIFEdipine 10 MG CAP PO SCH (14:00)
[2017-06-22 16:15] LABS: HEMOGLOBIN A1b 1.6 %; HEMOGLOBIN Ao 85.8 %; HEMOGLOBIN P3 3.7 %
== END 2017-06-22 13:16 | disposition home or self-care (01) | DRG 778 ==
LOC: HOBED 19:58 → H2EB 20:52 → H2EA 21:18
PROVIDERS: ADMIT Obstetrics & Gynecology; ATTEND Obstetrics & Gynecology
DX: O60.03 Preterm labor without delivery, third trimester (principal); B19.10 Unspecified viral hepatitis B without hepatic coma; O98.413 Viral hepatitis complicating pregnancy, third trimester; O30.043 Twin pregnancy, dichorionic/diamniotic, third trimester; O99.013 Anemia complicating pregnancy, third trimester; O32.2XX2 Maternal care for transverse and oblique lie, fetus 2; O09.523 Supervision of elderly multigravida, third trimester; O34.219 Maternal care for unspecified type scar from previous cesarean delivery; Z3A.31 31 weeks gestation of pregnancy
CPT/HCPCS: 76819; 76820; 80053; 80307; 81001; 82728; 83036; 84443; 85025; 86077; 86850; 86870; 86900; 86901; 86902; 86920; 86922; J0702; J1756; J2540; J3475; J7120

== ENCOUNTER 2017-06-23 22:28 | Inpatient (IN) | payer BC ==
[2017-06-23] VITALS (10 sets, daily range): PULSE 50–78; RESP 18; TEMP 97.8
[~2017-06-23] VITALS: Ht 157.5 cm; Wt 57.6 kg
[~2017-06-23 22:28] MED LIST changes: +NIFE10 PO
[2017-06-23] MEDS: LACTATED RINGER'S 1000 ML INJ 1,000 ML IV SCH (23:13)
[2017-06-23] MEDS ORDERED: LORazepam 2 MG/ML VIAL ONE (23:24)
[2017-06-23] MEDS ORDERED: LORazepam 2 MG/ML VIAL IV PUSH ONE (23:30)
--- NOTE | 2017-06-23 23:45 | PD ---
HPI Chief Complaint Abdominal pain Date Seen: Jun 23, 2017 Time Seen: 23:30 Travel History International Travel<30 Days: No Contact w/Intl Traveler<30Days: No Known Affected Area: No History of Present Illness HPI 47-year-old 2 para 1 female at 31-2/7 weeks' gestation with a mono /di twin who was recently discharged after treatment for labor and presents tonight with complaint of diffuse abdominal pain which started suddenly while she was sitting. She cannot pinpoint a point of maximal tenderness but rather states that her entire abdomen hurts. She does not describe this as a waxing and waning pain. Despite the use of a retail loan officer it is difficult to get her to characterize the pain. She denies leakage of fluid or bleeding. No dysuria hematuria or frequency. No diarrhea or constipation. Weeks Gestation: 31 Para: 1 : 2 History Past Medical History Narrative Medical Hepatitis B surface antigen positive with normal liver function tests Obstetric History Obstetric History IVF Prior Advanced maternal age Past Surgical History Narrative Surgical Family History Family History: Negative Social History Alcohol Use: No Tobacco Use: No Substance Abuse: No Allergies-Medications (Allergen,Severity, Reaction): Coded Allergies: No Known Allergies (Unverified , 02/20/17) Home Meds Active Scripts Nifedipine (Procardia) 10 Mg Cap, 10 MG PO Q8HR for contractions for 60 Days, # 120 CAP Prov:Lelia Penny MD 06/22/17 Polyethylene Glycol 3350 Powder (Miralax Powder) 17 Gm Powd, 17 GM PO DAILY for Constipation, #1 BOTTLE 0 Refills Mix and dissolve one measuring cap-ful (17 grams) in water or juice. Prov:Adia Nichole MD 02/20/17 Ondansetron (Zofran) 4 Mg Tab, 4 MG PO Q6HR Y for NAUSEA OR VOMITING, #20 TAB 0 Refills Prov:Raghu Trevino MD 02/10/17 Ranitidine (Zantac) 150 Mg Tab, 150 MG PO BID for Reflux, #60 TAB 0 Refills Prov:Raghu Trevino MD 02/10/17 Review of Systems Except as stated in HPI: all other systems reviewed are Neg Physical Exam Narrative GENERAL: Well-nourished, well-developed patient. SKIN: Warm and dry. HEAD: Normocephalic and atraumatic. EYES: No scleral icterus. No injection or drainage. ENT: No nasal drainage noted. Mucous membranes pink. Airway patent. NECK: Supple, trachea midline. No JVD. CARDIOVASCULAR: Regular rate and rhythm without murmurs, gallops, or rubs. RESPIRATORY: Breath sounds equal bilaterally. No accessory muscle use. ABDOMEN/GI: Abdomen soft, non-tender, bowel sounds present, no rebound, no guarding Gravid to [-] weeks size Fundal Height: [-] GENITOURINARY: External Genitalia: intact and normal in appearance BUS glands: [-] Cervix: [-] Dilatation: [-1] Effacement: [-50] Station: [- -2-] Presentation: [Vertex-] Membranes: [intact ] Uterine Contractions: [Rare mild-] FHT's: Category: [12-] Baseline: [-] Reactive: [-] Variability: [-] Decels: [None-] EXTREMITIES: No cyanosis or edema. BACK: Nontender without obvious deformity. No CVA tenderness. NEUROLOGICAL: Awake and alert. Motor and sensory grossly within normal limits. Five out of 5 muscle strength in all muscle groups. Normal speech. Data Data Orders Orders Fibronectin (06/23/17 22:45) Place In Observation (06/23/17 ) Code Status (06/23/17 23:13) Vital Signs (Adult) Q4H (06/23/17 23:13) Activity Oob Ad [place] (06/23/17 23:13) Heart CONTINUOUS (06/23/17 23:13) Diet Npo (06/24/17 Breakfast) Lactated Ringer's 1000 Ml Inj (Lr 1000 M (06/23/17 23:13) Ob (2e) Additional Admit Info (06/23/17 23:19) Complete Blood Count With Diff (06/23/17 23:20) Comprehensive Metabolic Panel (06/23/17 23:21) Lorazepam Inj (Ativan Inj) (06/23/17 23:30) Lorazepam Inj (Ativan Inj) (06/23/17 23:24) Labs Laboratory Tests Test 06/23/17 22:36 MDM Medical Record Reviewed: Yes Narrative Course / MDM Assessment: 31+ week mono chorionic diamniotic twin gestation with abdominal pain of uncertain origin and anxiety. No evidence of acute abdominal process. Doubt uterine rupture/dehiscence. Plan: CBC, CMP, fibronectin. Admit for observation and continuous monitoring. 1 mg of IV Ativan Lg Sol MD Jun 23, 2017 23:45
[2017-06-23 23:51] LABS: AUTOMATED NEUTROPHIL # 5.9 TH/MM3 (1.8-7.7); BASOPHIL % 0.4 % (0.0-2.0); EOSINOPHIL # 0.1 TH/MM3 (0-0.4); EOSINOPHIL % 0.7 % (0.0-4.0); HEMATOCRIT 22.9 % (35.0-46.0); LYMPH % 27.4 % (9.0-44.0); LYMPHOCYTE # 2.8 TH/MM3 (1.0-4.8); MEAN CELL VOLUME 80.8 FL (80.0-100.0); MEAN CORPUSCULAR HEMOGLOBIN 26.4 PG (27.0-34.0); MEAN CORPUSCULAR HGB CONC 32.7 % (32.0-36.0); MONO % 14.1 % (0.0-8.0); NEUT % 57.4 % (16.0-70.0); PLATELET COUNT 194 TH/MM3 (150-450); RED BLOOD COUNT 2.84 MIL/MM3 (4.00-5.30); RED CELL DISTRIBUTION WIDTH 17.2 % (11.6-17.2); WHITE BLOOD COUNT 10.3 TH/MM3 (4.0-11.0)
[2017-06-23 23:52] LABS: HEMO FLAGS AUTO DIFF
[2017-06-23 23:58] LABS: ALT (GPT) 25 U/L (10-53); ANION GAP 11 MEQ/L (5-15); AST (GOT) 37 U/L (15-37); BICARBONATE 21.9 MEQ/L (21.0-32.0); BLOOD UREA NITROGEN 10 MG/DL (7-18); CHLORIDE 107 MEQ/L (98-107); GLOMERULAR FILTRATION RATE 125 ML/MIN (>89); SODIUM (NA) 140 MEQ/L (136-145)
[2017-06-24] VITALS (31 sets, daily range): BP systolic 74–133; BP diastolic 41–83; PULSE 63–95; RESP 9–24; TEMP 97.6–99.7; O2SAT 94–99
[2017-06-24] LABS: ALKALINE PHOSPHATASE 176 U/L (45-117); TOTAL BILIRUBIN ADULT 0.4 MG/DL (0.2-1.0)
[2017-06-24] MEDS ORDERED: NIFEdipine 10 MG CAP ONE (00:22)
[2017-06-24] MEDS ORDERED: NIFEdipine 10 MG CAP PO ONE (00:30)
[2017-06-24 00:54] LABS: BASOPHILS 1 % (0-2); CORRECTED NUCLEATED RBC 14 /100 WBC (0-0); METAMYELOCYTES 1 % (0-1); MYELOCYTES 1 % (0-0); NEUTROPHIL # MANUAL DIFF 7.2 TH/MM3 (1.8-7.7); PLATELET ESTIMATE SMEAR NORMAL (NORMAL); PLATELET MORPHOLOGY ENLARGED (NORMAL); POLYS (SEG NEUTROPHILS) 68 % (16-70); SCAN/DIFF FINAL DIFF MANUAL; WBC DIFF SAMPLE 100
[2017-06-24 00:56] LABS: OVALOCYTES 1+ (NORMAL)
[2017-06-24 00:58] LABS: KERATOCYTES OCC (NORMAL)
[2017-06-24] MEDS ORDERED: LORazepam 2 MG/ML VIAL IV ONE (02:30)
[2017-06-24] MEDS ORDERED: NIFEdipine 20 MG CAP PO ONE (02:30)
[2017-06-24] MEDS: LACTATED RINGER'S 1000 ML INJ 1,000 ML IV SCH ×2 (02:34→07:18)
[2017-06-24] MEDS ORDERED: MORPHINE SULFATE 8 MG/ML INJ ONE (07:22)
[2017-06-24] MEDS ORDERED: MORPHINE SULFATE 8 MG/ML INJ IM ONE (07:45)
[2017-06-24 07:49] LABS: AUTOMATED NEUTROPHIL # 6.6 TH/MM3 (1.8-7.7); BASOPHIL # 0.1 TH/MM3 (0-0.2); BASOPHIL % 0.8 % (0.0-2.0); EOSINOPHIL # 0.1 TH/MM3 (0-0.4); EOSINOPHIL % 0.5 % (0.0-4.0); LYMPH % 22.4 % (9.0-44.0); LYMPHOCYTE # 2.2 TH/MM3 (1.0-4.8); MEAN CELL VOLUME 81.4 FL (80.0-100.0); MEAN CORPUSCULAR HEMOGLOBIN 25.5 PG (27.0-34.0); MEAN CORPUSCULAR HGB CONC 31.3 % (32.0-36.0); MONO % 9.6 % (0.0-8.0); NEUT % 66.7 % (16.0-70.0); PLATELET COUNT 168 TH/MM3 (150-450); RED BLOOD COUNT 2.82 MIL/MM3 (4.00-5.30); WHITE BLOOD COUNT 9.9 TH/MM3 (4.0-11.0)
[2017-06-24 07:51] LABS: HEMO FLAGS AUTO DIFF
[2017-06-24 08:22] LABS: BANDS 3 % (0-6); CORRECTED NUCLEATED RBC 7 /100 WBC (0-0); NEUTROPHIL # MANUAL DIFF 7.5 TH/MM3 (1.8-7.7); PLATELET ESTIMATE SMEAR NORMAL (NORMAL); PLATELET MORPHOLOGY NORMAL (NORMAL); POLYCHROMASIA 2.7 % (0.0-1.9); POLYS (SEG NEUTROPHILS) 73 % (16-70); SCAN/DIFF FINAL DIFF MANUAL; WBC DIFF SAMPLE 100
[2017-06-24 08:23] LABS: OVALOCYTES 1+ (NORMAL)
[2017-06-24] MEDS ORDERED: OXYTOCIN 10 UNIT/ML AMP ONE (08:24)
[2017-06-24] MEDS ORDERED: LACTATED RINGER'S 1000 ML INJ 1,000 ML IV ONE (08:50)
[2017-06-24] MEDS ORDERED: ceFAZolin INJ 1,000 MG VIAL ONE (09:01)
--- NOTE | 2017-06-24 09:05 | PD.OB.ANTE ---
Subjective Interval History 47 yo Mandarin female at 31 2/7 with mono di twins from IVF, returned 24 hours after extensive evaluation for labor. Initial extended evaluation involved 48 hour magnesium, two doses of steroids and emperic antibiotics. Was sent home on procardia. Returned in extreme pain, writhing and distraught. Difficulties with history as she and her spouse must use smart phone sustainable design coordinator. She feels like something is trying to force its way out. No leaking, bleeding. Pain focalized in RLQ. Present even after 10 mg morphine. Ultrasound at bedside by senior sourcing manager who knows her well shows marked change in fluid around A (< 3cm) and an abnormal placenta for A with new hyperechogenicity and a irregular mass adjacent that could be an abruptio that has walled off. Her Hemoglobin was 7.2 and was 7.5 on discharge . Baby A has no BTBV of significance. Baby B has normal BTBV. Babies known to be greater than [address] Menard (neonatology). NPO > 8 hours. This has all been explained to Seeam through a translater on smart phone. Antepartum ROS: Reports: Contractions Objective Vital Signs Vital Signs Date Time Temp Pulse Resp B/P (MAP) Pulse Ox O2 Delivery O2 Flow Rate FiO2 06/24/17 07:20 95 114/75 (88) 06/24/17 07:19 97.8 24 06/24/17 05:06 79 106/49 (68) 06/24/17 05:00 20 06/24/17 04:00 80 102/49 (66) 06/24/17 03:28 111/60 (77) 06/24/17 03:28 88 20 06/24/17 02:15 20 06/24/17 02:01 79 118/41 (66) 06/24/17 01:04 89 74/41 (52) 06/24/17 01:00 98.1 18 06/24/17 00:35 78 06/24/17 00:30 76 06/24/17 00:26 18 06/24/17 00:25 78 06/24/17 00:20 75 06/24/17 00:15 79 06/24/17 00:10 78 06/24/17 00:05 78 06/24/17 00:00 76 06/23/17 23:55 78 06/23/17 23:50 78 06/23/17 23:45 75 06/23/17 23:40 73 06/23/17 23:35 73 06/23/17 23:30 66 06/23/17 23:30 18 06/23/17 23:25 70 06/23/17 23:20 50 06/23/17 23:00 18 06/23/17 22:45 97.8 Lab & Micro Results Test 06/23/17 22:36 06/23/17 23:20 06/24/17 07:35 Fibronectin POSITIVE White Blood Count 10.3 TH/MM3 9.9 TH/MM3 Red Blood Count 2.84 MIL/MM3 2.82 MIL/MM3 Hemoglobin 7.5 GM/DL 7.2 GM/DL Hematocrit 22.9 % 23.0 % Mean Corpuscular Volume 80.8 FL 81.4 FL Mean Corpuscular Hemoglobin 26.4 PG 25.5 PG Mean Corpuscular Hemoglobin Concent 32.7 % 31.3 % Red Cell Distribution Width 17.2 % 17.0 % Platelet Count 194 TH/MM3 168 TH/MM3 Mean Platelet Volume 10.4 FL 9.8 FL Neutrophils (%) (Auto) 57.4 % 66.7 % Lymphocytes (%) (Auto) 27.4 % 22.4 % Monocytes (%) (Auto) 14.1 % 9.6 % Eosinophils (%) (Auto) 0.7 % 0.5 % Basophils (%) (Auto) 0.4 % 0.8 % Neutrophils # (Auto) 5.9 TH/MM3 6.6 TH/MM3 Lymphocytes # (Auto) 2.8 TH/MM3 2.2 TH/MM3 Monocytes # (Auto) 1.4 TH/MM3 0.9 TH/MM3 Eosinophils # (Auto) 0.1 TH/MM3 0.1 TH/MM3 Basophils # (Auto) 0.0 TH/MM3 0.1 TH/MM3 CBC Comment AUTO DIFF AUTO DIFF Differential Total Cells Counted 100 100 Neutrophils % (Manual) 68 % 73 % Lymphocytes % 19 % 17 % Monocytes % 10 % 7 % Basophils % 1 % Neutrophils # (Manual) 7.2 TH/MM3 7.5 TH/MM3 Metamyelocytes 1 % Myelocytes 1 % Nucleated Red Blood Cells 14 /100 WBC 7 /100 WBC Differential Comment FINAL DIFF MANUAL FINAL DIFF MANUAL Platelet Estimate NORMAL NORMAL Platelet Morphology Comment ENLARGED NORMAL Basophilic Stippling FAINT Ovalocytes 1+ 1+ Keratocytes OCC Blood Urea Nitrogen 10 MG/DL Creatinine 0.53 MG/DL Random Glucose 88 MG/DL Total Protein 6.1 GM/DL Albumin 2.3 GM/DL Calcium Level 8.0 MG/DL Alkaline Phosphatase 176 U/L Aspartate Amino Transf (AST/SGOT) 37 U/L Alanine Aminotransferase (ALT/SGPT) 25 U/L Total Bilirubin 0.4 MG/DL Sodium Level 140 MEQ/L Potassium Level 4.0 MEQ/L Chloride Level 107 MEQ/L Carbon Dioxide Level 21.9 MEQ/L Anion Gap 11 MEQ/L Estimat Glomerular Filtration Rate 125 ML/MIN Band Neutrophils % 3 % Polychromasia 2.7 % Physical Exam GENERAL: Well-nourished, well-developed patient. CARDIOVASCULAR: Regular rate and rhythm without murmurs, gallops, or rubs. RESPIRATORY: Breath sounds equal bilaterally. No accessory muscle use. ABDOMEN/GI: Abdomen soft, non-tender. 36 cm low / thin/1-2 cm A is vertex prior section scar EXTREMITIES: No cyanosis or edema, non-tender, without signs of DVT. Assessment and Plan Assessment and Plan 31 2/7 week IVF twin IUP with abruptio suspected for twin A by clinical picture and sonography. Marked anemia. At risk for DIC. Baby A has no fluid and diminished BTBV but no bradycardia or decels yet. Ms. Stephenson already had steroids and Mg this week. Babies > 3 pounds. Have reviewed need to have babies delivered. Blood en route. Risks including damage to bowels, bladder, DIC, hysterectomy all discussed through sustainable design coordinator to best of our ability. Lleia Penny MD Jun 24, 2017 09:05
[2017-06-24] MEDS ORDERED: LACTATED RINGER'S 1000 ML INJ 1,000 ML IV SCH ×2 (09:20→15:14)
[2017-06-24] MEDS ORDERED: SIMETHICONE 80 MG CHEWABLE TAB PO PRN (10:15)
[2017-06-24] MEDS ORDERED: ACETAMINOPHEN 325 MG TAB PO PRN (10:15)
[2017-06-24] MEDS ORDERED: SODIUM CHLORIDE 0.9% FLUSH 10 ML FLUSH IV FLUSH PRN (10:15)
[2017-06-24] MEDS ORDERED: ONDANSETRON HCL 4 MG/2 ML VIAL IV PUSH PRN (10:15)
[2017-06-24] MEDS ORDERED: oxyCODONE/ACETAMINOPHEN 5 MG/325 MG TAB PO PRN (10:15)
[2017-06-24] MEDS ORDERED: ZOLPIDEM TARTRATE 5 MG TAB PO PRN (10:15)
[2017-06-24] MEDS ORDERED: OXYTOCIN 30 UNITS-500ML PREMIX 500 ML IV ONE (10:15)
[2017-06-24] MEDS ORDERED: KETOROLAC TROMETHAMINE 60 MG/2 ML (IM) VIAL IM PRN (10:15)
[2017-06-24] MEDS ORDERED: DOCUSATE SODIUM 50 MG/SENNA 8.6 MG TAB PO PRN (10:15)
[2017-06-24] MEDS ORDERED: MORPHINE SULFATE PF 5 MG/10 ML VIAL ONE (10:26)
--- NOTE | 2017-06-24 10:26 | PD.OB.DELI ---
Procedure Note Section Procedure Pre Op Diagnosis: (1) Abruptio placenta (2) Twin in third trimester Post Op Diagnosis: (1) Twin delivered Performed by Lelia Penny Procedure: Repeat Low Transverse Sec Indication for delivery: Maternal medical problems, Other (clinical abruptio) Previous condition: Uterine Window Informed consent obtained: For anesthesia, For procedure Confirmed correct: Patient, Procedure, Site, Time-out taken Anesthesia: Spinal Medication prior to procedure: As documented in eMAR Monitoring during procedure: Blood pressure monitoring, training and development head, Pulse oximetry Urinary catheter: Inserted using sterile technique, To dependent drainage, ml urine output Sterile preparation: Duraprep, In usual fashion, With 2% chlorexidine ( Hibiclens) Position: Supine with wedge to right side Operative Features Skin Incision: Pfannenstiel Uterine Incision: Low transverse w/knife / blunt ext Membranes Ruptured: Artificially Delivery date: Jun 24, 2017 Delivery time: 10:25 : Multiple Five Minute : 8 Status of infant: Viable Placenta delivered: Intact, Sent to pathology Medications: Antibiotics, Oxytocin Estimated blood loss: 800 Procedure tolerated: Well Maternal Condition: Stable Condition: Stable (dictated) Lelia Penny MD Jun 24, 2017 10:25
[2017-06-24] MEDS ORDERED: CITRIC ACID-SODIUM CITRATE LIQ 30 ML UDC PO SCH (10:30)
[2017-06-24] MEDS ORDERED: OXYTOCIN 30 UNITS-500ML PREMIX 500 ML ONE (10:37)
[2017-06-24 14:43] LABS: APTT (PATIENT) 32.7 SEC (24.3-30.1); INTERNATIONAL NORMALIZED RATIO 0.9 RATIO
[2017-06-24] MEDS ORDERED: EPIDURAL-NALOXONE HCL 0.4 MG/ML AMP IV PRN (15:30)
[2017-06-24] MEDS ORDERED: EPIDURAL-DIPHENHYDRAMINE HCL 50 MG/ML VIAL IV PUSH PRN (15:30)
[2017-06-24] MEDS ORDERED: EPIDURAL-DIPHENHYDRAMINE HCL 50 MG CAP PO PRN (15:30)
[2017-06-24] MEDS ORDERED: EPIDURAL-DO NOT ADMINISTER ANTICOAGULANTS PRN (15:30)
[2017-06-24] MEDS ORDERED: EPIDURAL-NO SYSTEMIC NARCOTICS PRN (15:30)
--- NOTE | 2017-06-24 17:53 | MP ---
cc: WONG PASCUAL MD DATE OF SURGERY 06/24/17 1970 PREOPERATIVE DIAGNOSIS A 31-1/2-week twin intrauterine with clinical symptoms and ultrasound suggestive of a placental abruption with twin A POSTOPERATIVE DIAGNOSIS 1. A 31-1/2-week twin intrauterine with clinical symptoms and ultrasound suggestive of a placental abruption with twin A 2. Delivered PROCEDURE Repeat low transverse segment section. ANESTHESIA Spinal with Duramorph SURGEON Javier Pascual MD M1 ARMOR CREWMAN Nixon Harvey MD FINDINGS The patient had come to the hospital in exquisite pain located mostly in the right lower quadrant. She was well known to the practice and the hospital with serial ultrasonography for this monody twin , a female . The ultrasound this morning was markedly changed with no fluid of significance around Twin A. An area of irregular mass by a hyperechoic placenta in the right lower quadrant and a flat heart rate 420. The patient had received steroids two doses completed on Monday, magnesium Monday and Monday and previous sonography revealed both twins to be greater than 3 pounds. This was discussed with the neonatology, anesthesiology and decision was made to proceed with a expedient but not emergent repeat low transverse segment section. Everything was discussed with a DrFirst generation technician with Ms. Stephenson and her . She was taken to the back. She was administered spinal with Duramorph. She was placed in dorsal supine position with weight off the vena cava. She had been given 1 gram of Ancef and 2 units of packed red cells in the OR due to her hemoglobin of 7.2. She had a Yu catheter in place. Sequential stockings on and a time-out was performed with a DrFirst generation technician. After assuring adequate spinal anesthesia, a Pfannenstiel incision was made with a knife and carried down through what appeared to be very scarred attenuous rectus fascia. This rectus fascia was only in portions and underneath it was what looked like maybe fatty peritoneal tissue. We could not discern any real muscle and when we tried to enter into the peritoneal cavity in the midline going as high as possible near the umbilicus, we could not identify a peritoneal cavity. We recognized that the bladder was pulled up all the way on the entire fundus, more so extending on the right than on the left. We were able to discern the bladder from the uterus but could not identify a plane between the uterus and anterior abdominal wall where we could identify tubes and ovaries. Through this elevated area in the uterus, an incision was made into the intrauterine cavity. Encountered was a sac with clear fluid. This was presumed to be baby A. Manipulations were made to reach down and grasp baby A's head and gently bring baby into the incision and deliver the baby. She had a good cry and the cord was allowed to be delayed clamped for 45 seconds. It was then clamped x2, cut and she was handed off to the neonatology team in attending. A cord gas and cord blood was then obtained. The sac was then ruptured on baby B and baby B inverted to vertex position easily and delivered with also a lusty cry, 45-second delayed cord clamping and then the cord was clamped. She was handed off to the neonatology team in attending. Cord gas and cord blood were obtained. The placenta was then removed clinically consistent with partial abruption in the right lower quadrant area and sent to pathology. It was not possible to exteriorize the uterus and we could not separate the uterus from the anterior abdominal wall or other structures. The incision was therefore closed in vivo with chromic in a running interlocking fashion and a second horizontal imbricating layer. On the right side, it was very difficult to identify the bladder separate from the uterus. The closure was made carefully with the second closure avoiding the bladder. The urine remained clear the whole time. The Yu was actually pushed up into the corner of the bladder to help assist in turning the bladder from other structures. The uterus appeared to be closed and appeared to be hemostatic. Irrigation was performed. There was no rectus muscle to approximate and we had no peritoneum to identify. The rectus fascia was approximated with some running but interrupted frequently to maximize the strength of this closure and minimize the risk of hernia. The subcutaneous layer was closed with 3 plain. Estimated blood loss was 800. Sponge, instrument, needle count were correct. There was no signs of DIC during the case at the baseline as she was given 2 units during the case. Her urine remained clear throughout the entire case. She remained calm and the babies appeared to be 31.5 weeks. Sponge, instrument, needle count were correct and she went to the recovery room in stable condition and the babies went to the NICU. MD ARIES Hawkins/ /3:21 PM /5:31 PM MTDPati
[2017-06-24] MEDS ORDERED: OXYTOCIN 30 UNITS-500ML PREMIX 500 ML IV PRN (20:15)
[2017-06-25 02:58] VITALS: TEMP 99
[2017-06-25 02:59] VITALS: BP 121/65
[2017-06-25 03:00] VITALS: PULSE 66; RESP 18; RESP 9; O2SAT 94
[2017-06-25] MEDS: IBUPROFEN 600 MG TAB PO PRN ×3 (03:01→19:13)
[2017-06-25 06:19] LABS: AUTOMATED NEUTROPHIL # 6.8 TH/MM3 (1.8-7.7); BASOPHIL # 0.1 TH/MM3 (0-0.2); BASOPHIL % 0.5 % (0.0-2.0); EOSINOPHIL # 0.1 TH/MM3 (0-0.4); EOSINOPHIL % 0.7 % (0.0-4.0); LYMPH % 24.6 % (9.0-44.0); LYMPHOCYTE # 2.6 TH/MM3 (1.0-4.8); MEAN CELL VOLUME 84.5 FL (80.0-100.0); MEAN CORPUSCULAR HEMOGLOBIN 28.2 PG (27.0-34.0); MEAN CORPUSCULAR HGB CONC 33.4 % (32.0-36.0); MONO % 9.2 % (0.0-8.0); PLATELET COUNT 128 TH/MM3 (150-450); RED BLOOD COUNT 2.96 MIL/MM3 (4.00-5.30); RED CELL DISTRIBUTION WIDTH 16.9 % (11.6-17.2); WHITE BLOOD COUNT 10.5 TH/MM3 (4.0-11.0)
[2017-06-25 06:38] LABS: HEMO FLAGS AUTO DIFF
[2017-06-25 08:00] VITALS: BP 124/60; PULSE 59; RESP 16; TEMP 98.4
--- NOTE | 2017-06-25 08:18 | HHI.OB ---
Subjective Post Operative Day: 1 Remarks Lying in bed comfortably reports some pain reports very swollen Objective Vitals/I&O Vital Signs Date Time Temp Pulse Resp B/P (MAP) Pulse Ox O2 Delivery O2 Flow Rate FiO2 06/25/17 03:00 18 94 06/25/17 03:00 66 9 06/25/17 02:59 121/65 (83) 06/25/17 02:58 99.0 06/24/17 19:05 99.7 67 9 117/69 (85) 94 06/24/17 16:30 98.8 64 18 133/83 (100) 06/24/17 14:20 17 06/24/17 13:15 18 06/24/17 12:05 98.1 65 17 113/66 (82) 06/24/17 11:15 97.6 06/24/17 11:15 68 18 123/67 (85) 96 06/24/17 11:00 63 115/66 (82) 06/24/17 11:00 12 96 06/24/17 10:45 67 12 113/63 (80) 96 06/24/17 10:30 64 12 113/59 (77) 97 06/24/17 10:20 69 18 111/60 (77) 96 06/24/17 10:20 97.8 06/24/17 09:38 97.9 84 20 120/80 98 06/24/17 09:22 97.8 95 24 114/75 99 Result Diagram: 06/25/17 0559 06/23/17 7076 Objective Remarks GENERAL: Well-nourished, well-developed patient. CARDIOVASCULAR: Regular rate and rhythm without murmurs, gallops, or rubs. RESPIRATORY: Breath sounds equal bilaterally. No accessory muscle use. ABDOMEN/GI: Abdomen soft, non-tender, bowel sounds present. Incision: Clean, dry and intact. Fundus: Firm, non-tender at umbilicus + 2 GENITOURINARY: Light to moderate bleeding. EXTREMITIES: No cyanosis or edema, non-tender, without signs of DVT. Medications and IVs Current Medications Medications (Trade) Dose Ordered Sig/Darya Route Start Time Stop Time Status Last Admin (Bicitra Liq) 30 ml GAMING INVESTIGATOR PO 06/24/17 10:30 06/28/17 10:29 Cefazolin Sodium 1000 mg/Sodium Chloride 100 ml @ 200 mls/hr GAMING INVESTIGATOR IV 06/24/17 10:00 06/28/17 09:59 Lactated Ringer's 1,000 ml @ 100 mls/hr Q10H IV 06/24/17 15:14 06/25/17 11:13 Oxytocin 500 ml @ 100 mls/hr UNSCH X1 PRN IV 06/24/17 20:15 06/25/17 20:14 (NS Flush) 2 ml BID IV FLUSH 06/24/17 21:00 (NS Flush) 2 ml UNSCH PRN IV FLUSH 06/24/17 10:15 (Mylicon Chew) 80 mg QID PRN PO 06/24/17 10:15 (Tylenol) 650 mg Q6H PRN PO 06/24/17 10:15 (Motrin) 600 mg Q6H PRN PO 06/24/17 10:15 06/25/17 03:01 (Toradol Inj) 30 mg Q6H PRN IM 06/24/17 10:15 06/25/17 10:14 (Percocet 5-325 Mg) 1 tab Q4H PRN PO 06/24/17 10:15 (Percocet 5-325 Mg) 2 tab Q4H PRN PO 06/24/17 10:15 (Day-Colace) 2 tab Q12H PRN PO 06/24/17 10:15 (Ambien) 5 mg HS PRN PO 06/24/17 10:15 (M-M-R Ii Inj) 0.5 ml ONCE ONCE SQ 06/25/17 16:00 06/25/17 16:01 (Boostrix Inj) 0.5 ml ONCE ONCE IM 06/25/17 16:00 06/25/17 16:01 (Zofran Inj) 4 mg Q6H PRN IV PUSH 06/24/17 10:15 Miscellaneous Information NO SYSTEMIC NARCOTICS TO BE GIVEN FO... UNSCH PRN .XX 06/24/17 15:30 06/25/17 09:25 (Narcan Inj) 0.4 mg UNSCH PRN IV 06/24/17 15:30 06/25/17 09:25 (Benadryl Inj) 25 mg Q6H PRN IV PUSH 06/24/17 15:30 06/25/17 09:25 (Benadryl) 50 mg Q6H PRN PO 06/24/17 15:30 06/25/17 09:25 Miscellaneous Information ALL NURSING DEPARTMENTS UNSCH PRN .XX 06/24/17 15:30 06/25/17 09:25 Assessment/Plan Assessment and Plan POD 1 s/p repeat section for 31 week twins extremely difficult procedure with scarring and obliteration of spaces and planes was transfused 2 units intra op as she started at 7.2 will repeat H & H in am she also received three doses of venofir last week. Lelia Penny MD Jun 25, 2017 08:18
[2017-06-25] MEDS ORDERED: OXYC1TAB63 PO (08:20)
--- NOTE | 2017-06-25 08:20 | HHI.DCPOC ---
Discharge Care Plan Report Symptoms to Your Doctor -Temperature above 100.5 degrees -Redness, of incision or excessive or foul smelling drainage -Unusual pain or calf pain -Increased vaginal bleeding -Painful or difficulty urinating -Feelings of extreme sadness or anxiety after 2 weeks Goals to Promote Your Health * To prevent worsening of your condition and complications * To maintain your health at the optimal level Directions to Meet Your Goals Take your medications as prescribed Follow your dietary instruction Follow activity as directed Ensure plenty of rest for recovery Drink fluids for hydration Keep your appointments as scheduled Take your immunizations and boosters as scheduled If your symptoms worsen call your PCP, if no PCP go to Urgent Care Center or Emergency Room Smoking is Dangerous to Your Health. Avoid second hand smoke Call the 24-hour crisis hotline for domestic abuse at Lelia Penny MD Jun 25, 2017 08:20
[2017-06-25] MEDS: oxyCODONE/ACETAMINOPHEN 5 MG/325 MG TAB PO PRN ×2 (10:21→19:13)
[2017-06-25 13:46] LABS: BANDS 10 % (0-6); CORRECTED NUCLEATED RBC 9 /100 WBC (0-0); EOSINOPHILS 2 % (0-4); NEUTROPHIL # MANUAL DIFF 8.5 TH/MM3 (1.8-7.7); POLYS (SEG NEUTROPHILS) 71 % (16-70); WBC DIFF SAMPLE 100
[2017-06-25 13:47] LABS: PLATELET ESTIMATE SMEAR LOW (NORMAL); PLATELET MORPHOLOGY ENLARGED (NORMAL); SCAN/DIFF FINAL DIFF MANUAL
[2017-06-25] MEDS ORDERED: DIPHTH/TETANUS/ACEL PERTUSSIS (BOOSTER) 0.5 ML VIAL/PFS IM ONE (16:00)
[2017-06-25] MEDS ORDERED: MEASLES, MUMPS, RUBELLA VACCINE 0.5 ML VIAL SQ ONE (16:00)
[2017-06-25 20:50] VITALS: BP 120/62; PULSE 60; RESP 18; TEMP 98.5
[2017-06-25] MEDS: SODIUM CHLORIDE 0.9% FLUSH 10 ML FLUSH IV FLUSH SCH (21:00)
[2017-06-26 06:55] LABS: AUTOMATED NEUTROPHIL # 7.7 TH/MM3 (1.8-7.7); BASOPHIL # 0.1 TH/MM3 (0-0.2); BASOPHIL % 0.9 % (0.0-2.0); EOSINOPHIL # 0.1 TH/MM3 (0-0.4); HEMATOCRIT 28.7 % (35.0-46.0); MEAN CELL VOLUME 85.4 FL (80.0-100.0); MEAN CORPUSCULAR HEMOGLOBIN 27.7 PG (27.0-34.0); MEAN CORPUSCULAR HGB CONC 32.4 % (32.0-36.0); MONO % 7.2 % (0.0-8.0); NEUT % 71.9 % (16.0-70.0); PLATELET COUNT 140 TH/MM3 (150-450); RED BLOOD COUNT 3.36 MIL/MM3 (4.00-5.30); RED CELL DISTRIBUTION WIDTH 17.6 % (11.6-17.2); WHITE BLOOD COUNT 10.7 TH/MM3 (4.0-11.0)
[2017-06-26 07:28] LABS: HEMO FLAGS AUTO DIFF
[2017-06-26 08:00] VITALS: BP 148/71; PULSE 60; RESP 17; TEMP 99.4
[2017-06-26] MEDS: IBUPROFEN 600 MG TAB PO PRN ×2 (08:06→16:43)
--- NOTE | 2017-06-26 10:47 | HHI.OB ---
Subjective Post Operative Day: 2 Remarks doing ok. had not been asking for pain medication and had increased pain this am. Reiterated on translation line she can take percocet q4-6 hours and she does not need to wait until pain is intense. She has had min ambulation. + flatus. no bm yet. no issues with voiding. Babies in nicu for prematurity. Objective Vitals/I&O Vital Signs Date Time Temp Pulse Resp B/P (MAP) Pulse Ox O2 Delivery O2 Flow Rate FiO2 06/26/17 08:00 99.4 60 17 148/71 (96) 06/25/17 20:50 60 18 120/62 (81) 06/25/17 20:50 98.5 Result Diagram: 06/26/17 0638 06/23/17 7820 Objective Remarks GENERAL: Well-nourished, well-developed patient. CARDIOVASCULAR: Regular rate and rhythm without murmurs, gallops, or rubs. RESPIRATORY: Breath sounds equal bilaterally. No accessory muscle use. ABDOMEN/GI: Abdomen soft, non-tender, bowel sounds present. Incision: Clean, dry and intact. Fundus: Firm, non-tender at umbilicus GENITOURINARY: Light to moderate bleeding. EXTREMITIES: No cyanosis or edema, non-tender, without signs of DVT. Medications and IVs Current Medications Medications (Trade) Dose Ordered Sig/Darya Route Start Time Stop Time Status Last Admin (Bicitra Liq) 30 ml [employer] PO 06/24/17 10:30 06/28/17 10:29 Cefazolin Sodium 1000 mg/Sodium Chloride 100 ml @ 200 mls/hr [employer] IV 06/24/17 10:00 06/28/17 09:59 (NS Flush) 2 ml BID IV FLUSH 06/24/17 21:00 (NS Flush) 2 ml UNSCH PRN IV FLUSH 06/24/17 10:15 (Mylicon Chew) 80 mg QID PRN PO 06/24/17 10:15 (Tylenol) 650 mg Q6H PRN PO 06/24/17 10:15 (Motrin) 600 mg Q6H PRN PO 06/24/17 10:15 06/26/17 08:06 (Percocet 5-325 Mg) 1 tab Q4H PRN PO 06/24/17 10:15 06/25/17 19:13 (Percocet 5-325 Mg) 2 tab Q4H PRN PO 06/24/17 10:15 06/26/17 08:06 (Day-Colace) 2 tab Q12H PRN PO 06/24/17 10:15 (Ambien) 5 mg HS PRN PO 06/24/17 10:15 (Zofran Inj) 4 mg Q6H PRN IV PUSH 06/24/17 10:15 Assessment/Plan Assessment and Plan POD 2 s/p repeat section for 31 week twins for clinical signs of placental abruption extremely difficult procedure with scarring and obliteration of spaces and planes was transfused 2 units intra op as she started at 7.2 -->9.3 she also received three doses of venofir last week. Working with as she has not made colostrum Discharge Planning POD3 Pauly Wagner MD Jun 26, 2017 10:47
[2017-06-26] MEDS: SODIUM CHLORIDE 0.9% FLUSH 10 ML FLUSH IV FLUSH SCH ×2 (11:00→20:13)
[2017-06-26 11:35] LABS: PLATELET ESTIMATE SMEAR LOW (NORMAL); PLATELET MORPHOLOGY NORMAL (NORMAL); POLYCHROMASIA 2.7 % (0.0-1.9); SCAN/DIFF AUTO DIFF CONFIRMED
[2017-06-26] MEDS: oxyCODONE/ACETAMINOPHEN 5 MG/325 MG TAB PO PRN (16:43)
[2017-06-26 20:10] VITALS: BP 129/64; PULSE 58; RESP 18; TEMP 98.5
[2017-06-27] MEDS: oxyCODONE/ACETAMINOPHEN 5 MG/325 MG TAB PO PRN ×2 (01:17→12:22)
[2017-06-27] MEDS: IBUPROFEN 600 MG TAB PO PRN ×2 (01:17→12:22)
[2017-06-27 08:21] VITALS: BP 134/75; PULSE 54; RESP 16; TEMP 98.1
--- NOTE | 2017-06-27 08:27 | HHI.DCPOC ---
Discharge Care Plan Report Symptoms to Your Doctor -Temperature above 100.5 degrees -Redness, of incision or excessive or foul smelling drainage -Unusual pain or calf pain -Increased vaginal bleeding -Painful or difficulty urinating -Feelings of extreme sadness or anxiety after 2 weeks Goals to Promote Your Health * To prevent worsening of your condition and complications * To maintain your health at the optimal level Directions to Meet Your Goals Take your medications as prescribed Follow your dietary instruction Follow activity as directed Ensure plenty of rest for recovery Drink fluids for hydration Keep your appointments as scheduled Take your immunizations and boosters as scheduled If your symptoms worsen call your PCP, if no PCP go to Urgent Care Center or Emergency Room Smoking is Dangerous to Your Health. Avoid second hand smoke Call the 24-hour crisis hotline for domestic abuse at Lelia Penny MD Jun 27, 2017 08:27
--- NOTE | 2017-06-27 08:27 | HHI.OB ---
Subjective Post Operative Day: 3 Remarks Doing well through patent prosecution paralegal she is complaining of something stuck in her throat and asking if she can have mole removed from her neck today wants to stay additional day since twins in NICU explained stay close through patent prosecution paralegal slight pain in incision lochia not excessive Objective Vitals/I&O Vital Signs Date Time Temp Pulse Resp B/P (MAP) Pulse Ox O2 Delivery O2 Flow Rate FiO2 06/26/17 20:10 98.5 58 18 06/26/17 20:10 129/64 (85) Result Diagram: 06/26/17 0638 06/23/17 2320 Objective Remarks GENERAL: Well-nourished, well-developed patient. CARDIOVASCULAR: Regular rate and rhythm without murmurs, gallops, or rubs. RESPIRATORY: Breath sounds equal bilaterally. No accessory muscle use. ABDOMEN/GI: Abdomen soft, non-tender, bowel sounds present. Incision: Clean, dry and intact. Fundus: Firm, non-tender at umbilicus GENITOURINARY: Light to moderate bleeding. EXTREMITIES: No cyanosis or edema, non-tender, without signs of DVT. Medications and IVs Current Medications Medications (Trade) Dose Ordered Sig/Darya Route Start Time Stop Time Status Last Admin (Bicitra Liq) 30 ml [employer]OTH PO 06/24/17 10:30 06/28/17 10:29 Cefazolin Sodium 1000 mg/Sodium Chloride 100 ml @ 200 mls/hr [employer]OTH IV 06/24/17 10:00 06/28/17 09:59 (NS Flush) 2 ml BID IV FLUSH 06/24/17 21:00 (NS Flush) 2 ml UNSCH PRN IV FLUSH 06/24/17 10:15 (Mylicon Chew) 80 mg QID PRN PO 06/24/17 10:15 (Tylenol) 650 mg Q6H PRN PO 06/24/17 10:15 (Motrin) 600 mg Q6H PRN PO 06/24/17 10:15 06/27/17 01:17 (Percocet 5-325 Mg) 1 tab Q4H PRN PO 06/24/17 10:15 06/27/17 01:17 (Percocet 5-325 Mg) 2 tab Q4H PRN PO 06/24/17 10:15 06/26/17 08:06 (Day-Colace) 2 tab Q12H PRN PO 06/24/17 10:15 06/27/17 01:17 (Ambien) 5 mg HS PRN PO 06/24/17 10:15 (Zofran Inj) 4 mg Q6H PRN IV PUSH 06/24/17 10:15 Assessment/Plan Assessment and Plan POD 2 s/p repeat section for 31 week twins for clinical signs of placental abruption extremely difficult procedure with scarring and obliteration of spaces and planes was transfused 2 units intra op as she started at 7.2 -->9.3 she also received three doses of venofir last week. Working with as she has not made colostrum Discharge Planning POD3 Hgb up nicely will discharge from care but allow stay close for 48 hours Lelia Penny MD Jun 27, 2017 08:27
== END 2017-06-27 14:16 | disposition home or self-care (01) | DRG 765 ==
LOC: HOBED 22:28 → H2EA 23:20 → OBSVTOIN 06-24 08:52 → H1EA 06-24 14:02
PROVIDERS: ADMIT Obstetrics & Gynecology; ATTEND Obstetrics & Gynecology
PROC: 10D00Z1 Extraction of Products of Conception, Low, Open Approach (ICD-10-PCS; principal; 2017-06-24)
PROC: 30233N1 Transfusion of Nonautologous Red Blood Cells into Peripheral Vein, Percutaneous Approach (ICD-10-PCS; 2017-06-24)
DX: O45.93 Premature separation of placenta, unspecified, third trimester (principal); O30.033 Twin pregnancy, monochorionic/diamniotic, third trimester; Z37.2 Twins, both liveborn; O34.219 Maternal care for unspecified type scar from previous cesarean delivery; Z3A.31 31 weeks gestation of pregnancy; O99.02 Anemia complicating childbirth
CPT/HCPCS: 36430; 76815; 80053; 82731; 85007; 85025; 85027; 85610; 85730; 86850; 86900; 86901; 86920; 86922; 88307; 90715; 96361; 96372; 96374; 96376; G0378; J0690; J2060; J2270; J2274; J2590; J7120; P9016